=== PATIENT | male | born 1970 | race African-American/Black ===

== ENCOUNTER 2017-06-11 08:58 | Emergency (ER) | payer SELFPAY ==
[~2017-06-11] VITALS: Ht 185.4 cm; Wt 110.0 kg
[2017-06-11] MEDS ORDERED: METF500T4 PO (09:03)
[2017-06-11] MEDS ORDERED: KEPP500 PO (09:03)
[2017-06-11] MEDS ORDERED: IBUPROFEN 800MG TABLET PO ONE (12:00)
[2017-06-11 13:23] LABS: CLARITY URINE CLEAR (CLEAR); COLOR URINE YELLOW (YELLOW); KETONES URINE TRACE (NEGATIVE); LEUKOCYTE ESTERASE URINE NEGATIVE (NEGATIVE); NITRITE URINE NEGATIVE (NEGATIVE); OCCULT BLOOD URINE TRACE (NEGATIVE); PROTEIN URINE 2+ (NEGATIVE); UROBILINOGEN URINE 0.2 E.U./dL (0.2-1.0)
[2017-06-11 16:10] VITALS: BP 150/98
== END 2017-06-11 16:11 | disposition home or self-care (01) ==
LOC: ER 09:15
DX: M54.5 Low back pain (principal); E11.9 Type 2 diabetes mellitus without complications; G40.909 Epilepsy, unspecified, not intractable, without status epilepticus; Z88.5 Allergy status to narcotic agent; W19.XXXA Unspecified fall, initial encounter; Y93.89 Activity, other specified; Y92.89 Other specified places as the place of occurrence of the external cause
CPT/HCPCS: 72100; 81003; 99285; Z7610